=== PATIENT | male | born 2000 | race Caucasian/White ===

== ENCOUNTER 2018-06-15 21:28 | Emergency (ER) | payer SELFPAY ==
[~2018-06-15] VITALS: Ht 177.8 cm; Wt 63.5 kg
--- NOTE | 2018-06-15 21:50 | PHYS DOC ---
Adult General Chief Complaint Chief Complaint palpitation [facility] This is a very pleasant 17 years old gentleman who was seen earlier today at [facility] for the same complaint palpitation he said he was laying bed and felt a palpitation for about 7 minutes once he got in his struck palpation resolved upon arrival to the emergency department his symptoms. No palpitations no chest been no syncope no presyncope He was advised to follow-up with cardiology with the stress test and echo Review of Systems Review of Systems Constitutional: Denies fever or chills [] Eyes: Denies change in visual acuity, redness, or eye pain [] HENT: Denies nasal congestion or sore throat [] Respiratory: Denies cough or shortness of breath [] Cardiovascular: No additional information not addressed in HPI [] GI: Denies abdominal pain, nausea, vomiting, bloody stools or diarrhea [] : Denies dysuria or hematuria [] Musculoskeletal: Denies back pain or joint pain [] Integument: Denies rash or skin lesions [] Neurologic: Denies headache, focal weakness or sensory changes [] Endocrine: Denies polyuria or polydipsia [] All other systems were reviewed and found to be within normal limits, except as documented in this note. Allergies Allergies Allergies Coded Allergies Type Severity Reaction Last Updated Verified No Known Drug Allergies 06/15/18 No Physical Exam Physical Exam Constitutional: Well developed, well nourished, no acute distress, non-toxic appearance. [] HENT: Normocephalic, atraumatic, bilateral external ears normal, oropharynx moist, no oral exudates, nose normal. [] Eyes: PERRLA, EOMI, conjunctiva normal, no discharge. [] Neck: Normal range of motion, no tenderness, supple, no stridor. [] Cardiovascular:Heart rate regular rhythm, no murmur [] Lungs & Thorax: Bilateral breath sounds clear to auscultation [] Abdomen: Bowel sounds normal, soft, no tenderness, no masses, no pulsatile masses. [] Skin: Warm, dry, no erythema, no rash. [] Back: No tenderness, no CVA tenderness. [] Extremities: No tenderness, no cyanosis, no clubbing, ROM intact, no edema. [] Neurologic: Alert and oriented X 3, normal motor function, normal sensory function, no focal deficits noted. [] Psychologic: Affect normal, judgement normal, mood normal. [] Current Patient Data Vital Signs Vital Signs Date Time Temp Pulse Resp B/P (MAP) Pulse Ox O2 Delivery O2 Flow Rate FiO2 06/15/18 21:28 98.0 70 14 100 Room Air EKG EKG Normal sinus rhythm[] Radiology/Procedures Radiology/Procedures [] Course & Med Decision Making Course & Med Decision Making Pertinent Labs and Imaging studies reviewed. (See chart for details) [] Final Impression Final Impression [] Problems: (1) Palpitation Dragon Disclaimer Dragon Disclaimer This electronic medical record was generated, in whole or in part, using a voice recognition dictation system. BOB GARCIA MD Jun 15, 2018 21:50
[2018-06-15 22:04] LABS: CALCIUM 9.1 mg/dL (8.5-10.1); CREATININE 0.9 mg/dL (0.7-1.3); GFR 108.7; MAGNESIUM 2.2 mg/dL (1.8-2.4); POTASSIUM 3.6 mmol/L (3.5-5.1)
[2018-06-15 22:32] VITALS: BP 111/57
--- NOTE | 2018-06-20 11:22 | EKG ---
[address] [address] Test Date: 2018-06-15 Test Time: 21:38:50 Pat Name: SHYAM JUAREZ Department: Room: Gender: M Sr. Director Product Management: : 2000 Requested By: BOB GARCIA Order Number: [id number] Reading MD: Measurements Intervals [place] Rate: 76 P: 59 NE: 142 QRS: 92 QRSD: 84 T: 69 QT: 350 QTc: 398 Interpretive Statements SINUS RHYTHM RIGHTWARD AXIS NO SPECIFIC ECG ABNORMALITIES RI6.01 Unconfirmed report No previous ECG available for comparison
== END 2018-06-15 22:50 | disposition home or self-care (01) ==
LOC: ER 21:28
DX: R00.2 Palpitations (principal)
CPT/HCPCS: 36415; 80048; 83735; 84484; 99283